=== PATIENT | female | born 1960 | race Caucasian/White ===

== ENCOUNTER 2018-08-06 04:56 | Inpatient (IN) | payer OTHER ==
[~2018-08-06] VITALS: Ht 160 cm; Wt 88.0 kg
[2018-08-06 05:01] VITALS: Ht 160 cm; Wt 88.0 kg
[2018-08-06 05:21] LABS: BASOPHIL % 0.3 % (0-2); PLATELET COUNT 277 x10^3mcL (130-400); RED CELL DISTRIBUTION WIDTH 14.5 % (11.5-14.5)
[2018-08-06 05:33] LABS: CALCIUM 8.7 mg/dL (8.5-10.1); CREATININE SERUM 1.1 mg/dL (0.6-1.0); POTASSIUM SERUM 3.5 mmol/L (3.5-5.1)
[2018-08-06 05:41] LABS: BILIRUBIN TOTAL 0.34 mg/dL (0.20-1.00); TOTAL PROTEIN, SERUM 7.3 g/dL (6.4-8.2)
[2018-08-06 05:49] LABS: ALBUMIN 2.9 g/dL (3.4-5.0)
[2018-08-06 07:00] LABS: T4(THYROXINE) 6.8 ug/dL (4.7-13.3)
[2018-08-06] MEDS ORDERED: PROGRAF1 MG PO (07:56)
[2018-08-06] MEDS ORDERED: ATORVASTATIN CA40 M1 PO (07:56)
[2018-08-06] MEDS ORDERED: CEL250 PO (07:56)
[2018-08-06] MEDS ORDERED: ACYCLOVIR400 MG PO (07:57)
[2018-08-06] MEDS ORDERED: GLUCOTROL10 MG PO (07:57)
[2018-08-06] MEDS ORDERED: ZESTRIL5 MG PO (07:57)
[2018-08-06] MEDS ORDERED: TRAZODONE50 M1 PO (07:58)
[2018-08-06] MEDS ORDERED: URSO 250250 MG PO (07:58)
[2018-08-06] MEDS ORDERED: CYMBALTA20 M1 PO (07:59)
[2018-08-06] MEDS ORDERED: TOUJEO300 U/ML SC (08:00)
[2018-08-06 08:44] LABS: AMPHETAMINE QUAL UR NONE DETECTED (See below)
[2018-08-06 09:59] LABS: UA SPECIFIC GRAVITY 1.015 (1.005-1.035); microscopic required? YES; urine erythrocyte NEGATIVE (NEGATIVE)
[2018-08-06 11:02] LABS: MAGNESIUM 1.7 mg/dL (1.8-2.4); PHOSPHOROUS 3.3 mg/dL (2.5-4.9)
[2018-08-06 11:20] VITALS: BP 107/73
[2018-08-06 12:53] VITALS: BP 124/67
[2018-08-06 13:20] VITALS: BP 107/73
[2018-08-06 16:55] VITALS: BP 136/72
[2018-08-06 20:14] VITALS: BP 113/92
[2018-08-07 06:01] VITALS: BP 101/53
[2018-08-07 06:26] LABS: CALCIUM 9.2 mg/dL (8.5-10.1); CARBON DIOXIDE 20.7 mmol/L (21-32); CHLORIDE SERUM 109 mmol/L (98-107); GFR1 > 60 mL/min; GLUCOSE SERUM 206 mg/dL (74-106); POTASSIUM SERUM 3.7 mmol/L (3.5-5.1); SODIUM SERUM 141 mmol/L (136-145)
[2018-08-07 06:38] LABS: PLATELET COUNT 223 x10^3mcL (130-400)
[2018-08-07 07:03] LABS: BASOPHIL % 0 % (0-2)
[2018-08-07 08:50] VITALS: BP 104/48
[2018-08-07 16:36] VITALS: BP 129/79
[2018-08-07 20:26] VITALS: BP 140/70
[2018-08-08 05:32] VITALS: BP 146/79
[2018-08-08 07:02] LABS: PLATELET COUNT 243 x10^3mcL (130-400)
[2018-08-08 07:15] LABS: CARBON DIOXIDE 19.1 mmol/L (21-32); CREATININE SERUM 1.1 mg/dL (0.6-1.0); MAGNESIUM 1.8 mg/dL (1.8-2.4); POTASSIUM SERUM 4.1 mmol/L (3.5-5.1)
[2018-08-08 07:40] LABS: BASOPHIL % 0 % (0-2); RED CELL DISTRIBUTION WIDTH 15.8 % (11.5-14.5)
[2018-08-08 08:42] VITALS: BP 132/77
[2018-08-08] MEDS ORDERED: ZITHROMAX Z-PA250 MG PO (11:24)
[2018-08-08] MEDS ORDERED: MEDDP PO (11:24)
[2018-08-08] MEDS ORDERED: CEPACOL SORE TH1 LO4 MM (11:25)
[2018-08-08] MEDS ORDERED: PROAIR HFA8.5 GM IH (11:27)
[2018-08-08 12:18] VITALS: BP 132/77
== END 2018-08-08 15:10 | disposition home or self-care (01) | DRG 202 ==
LOC: ED 04:56 → DU 09:45 → MU 09:45
PROVIDERS: Emergency Medicine; Internal Medicine
DX: J20.9 Acute bronchitis, unspecified (principal); N17.0 Acute kidney failure with tubular necrosis; E44.0 Moderate protein-calorie malnutrition; Z94.4 Liver transplant status; J45.901 Unspecified asthma with (acute) exacerbation; D72.829 Elevated white blood cell count, unspecified; E11.65 Type 2 diabetes mellitus with hyperglycemia; E83.42 Hypomagnesemia; B19.20 Unspecified viral hepatitis C without hepatic coma; L40.9 Psoriasis, unspecified; Z79.899 Other long term (current) drug therapy
CPT/HCPCS: 82962; 83880; 85378; 87804; J1956; J2920; J2930; J7050; J7507; J7517; J7613; J7620; J7644; Q0092; Q9967

== ENCOUNTER 2020-11-15 07:42 | Emergency (ER) | payer OTHER, SELFPAY ==
[~2020-11-15] VITALS: Ht 160 cm; Wt 88.5 kg
[~2020-11-15 07:42] MED LIST: ACYCLOVIR400 MG PO; ATORVASTATIN CA40 M1 PO; CEL250 PO; CEPACOL SORE TH1 LO4 MM; CYMBALTA20 M1 PO; GLUCOTROL10 MG PO; MEDDP PO; PROAIR HFA8.5 GM IH; PROGRAF1 MG PO; TOUJEO300 U/ML SC; TRAZODONE50 M1 PO; URSO 250250 MG PO; ZESTRIL5 MG PO; ZITHROMAX Z-PA250 MG PO
[2020-11-15 07:44] VITALS: Ht 160 cm; Wt 88.5 kg
[2020-11-15 19:40] VITALS: BP 124/76
== END 2020-11-15 19:40 | disposition home or self-care (01) ==
LOC: ED 07:42
DX: U07.1 COVID-19 (principal); J45.909 Unspecified asthma, uncomplicated; E11.9 Type 2 diabetes mellitus without complications; Z90.49 Acquired absence of other specified parts of digestive tract; Z88.5 Allergy status to narcotic agent
CPT/HCPCS: U0003